=== PATIENT | female | born 1955 | race Caucasian/White ===

== ENCOUNTER 2017-09-29 10:00 | Inpatient (IN) | payer OTHER, MEDICARE ==
[~2017-09-29] VITALS: Ht 167.6 cm; Wt 110.7 kg
[2017-11-02] MEDS ORDERED: ATEN50TA PO (10:22)
[2017-11-02] MEDS ORDERED: HYDR-3580 PO (10:22)
[2017-11-02] MEDS ORDERED: CYCL10TA PO (10:22)
[2017-11-02] MEDS ORDERED: LISI-515 PO (10:22)
[2017-11-02] MEDS ORDERED: MULT-65 PO (10:22)
[2017-11-02] MEDS ORDERED: GABA300C5 PO (10:22)
[2017-11-02] MEDS ORDERED: OMEGCAP PO (10:22)
[2017-11-02] MEDS ORDERED: DULA0.5I SQ (10:22)
[2017-11-02] MEDS ORDERED: ROSU1TAB10 PO (10:22)
[2017-11-03] MEDS ORDERED: SODIUM CHLORID 0.9% 500 ML IV PRN (06:00)
[2017-11-03] MEDS ORDERED: CHLORHEXIDINE GLUCONATE 4% SOLN 120 ML BTL TOPICAL SCH (06:00)
[2017-11-03] MEDS ORDERED: METOPROLOL TARTRATE 25 MG TAB PO PRN (06:00)
[2017-11-03] MEDS ORDERED: ceFAZolin 2 GM PREMIX 50 ML IV SCH (06:00)
[2017-11-03] MEDS ORDERED: VANCOMYCIN 1000 MG/NS 250 ML (for <70 kg) IV SCH ×2 (06:00)
[2017-11-03] MEDS ORDERED: CHLORHEXIDINE GLUCONATE 2 % 1 PACK (2 CLOTHS) TOPICAL PRN (06:00)
[2017-11-03] MEDS ORDERED: LACTATED RINGER'S 1000 ML IV PRN (06:00)
[2017-11-03] MEDS ORDERED: POVIDONE IODINE 5% (ANTISEPSIS KIT) 4 APPLICATIONS EACH NARE PRN (06:00)
[2017-11-03] MEDS ORDERED: ACETAMINOPHEN 1000 MG/100 ML 100 ML IV ONE (06:27)
[2017-11-03] MEDS ORDERED: SUFentanil INJ 250 MCG/5 ML AMP ONE (06:27)
[2017-11-03] MEDS ORDERED: KETAMINE HCL 50 MG/5 ML SYRINGE ONE (06:30)
[2017-11-03] MEDS ORDERED: BUPIVACAINE/EPINEPHRINE 0.5% PF 10 ML VIAL ONE (06:49)
[2017-11-03] MEDS ORDERED: GENTAMICIN SULFATE 80 MG/2 ML VIAL ONE (06:49)
[2017-11-03] MEDS ORDERED: APREPITANT 40 MG CAP ONE (06:56)
[2017-11-03] MEDS ORDERED: SCOPOLAMINE 1.5 MG PATCH ONE (06:56)
[2017-11-03] MEDS ORDERED: DEXMEDETOMIDINE HCL 200 MCG/2 ML VIAL ONE (07:44)
[2017-11-03] MEDS ORDERED: MIDAZOLAM HCL 2 MG/2 ML VIAL ONE (07:59)
[2017-11-03] MEDS ORDERED: PROPOFOL 500 MG/50 ML INJ 100 ML ONE (08:39)
--- NOTE | 2017-11-03 09:44 | PD.OP ---
cc: Jim Membreno MD; Shayan Membreno MD Operative Report Date of Surgery: November 03, 2017 Preoperative Diagnosis: Osteophyte disc complex C3-4. Status post ACDF C4-C7, remote. Cervical spinal stenosis. Cervical radiculopathy Postoperative Diagnosis: Same Procedure: Anterior cervical discectomy decompression and bilateral foraminotomies, C3-4. Right anterior iliac crest bone graft Anesthesia: General Surgeon: Shayan Membreno Brick Dropper(s): KELLEY Hdz Operation and Findings: EBL: 50 cc INDICATIONS: This patient is a 62-year-old female status post previous cervical fusion C4-C7 many years ago he did well. Over the last year and half the patient had progressive radiating symptoms into both arms with evidence of cervical stenosis and cervical radiculopathy. Despite extensive conservative care, the patient is painful and symptomatic. She presents for surgical treatment NOTE: Libertad Hdz PA-C was present for the entire surgical procedure as my school psychologist assistant. In my medical opinion her skill and care was necessary for proper management of this patient PROCEDURE: The patient was brought to the operating room and anesthetized in the supine position. This patient was positioned supine on the radiolucent table. All pressure points were protected in the anterior cervical spine and iliac crest was scrubbed with alcohol followed by Hibiclens followed by ChloraPrep. A timeout was done and antibiotics were given within 1 hour time window. Lateral radiographic images were used identifying the proper level. A right anterior incision was made in line with skin creases. The platysma was opened in line with the incision. Deep dissection continued in the interval between the carotid sheath and the esophagus. The longus-coli muscles were lifted on both sides and retractors were positioned allowing good exposure. Lateral radiographic images were used to identify the proper level. Marblemount style interosseous pins were placed at C3 and C4 allowing exposure to that level. The microscope was rolled into the field. A total discectomy was accomplished and posterior osteophytes were removed. The posterior longitudinal ligament and annulus was taken down. Bilateral foraminotomies were accomplished. The endplates were squared up anticipating later bone grafting. A blunt probe could be placed out each foramen without evidence of nerve root compromise. The left iliac crest was approached. A small stab incision was made allowing percutaneous access to the anterior iliac crest. Multiple cores of cancellous bone were harvested and taken to the back table to be used for later bone grafting. The wound was irrigated anesthetized and closed with 4-0 Vicryl followed by Dermabond. The case was turned over to Dr. Jim Membreno for fusion and instrumentation per his dictation. FINDINGS: There was significant inflammatory changes at the C3-C4 level with evidence of high-grade bony stenosis at that level and mild instability. The decompression was felt to be very satisfactory. There was no complication that was appreciated. NOTE: This surgery was performed in 2 parts. The first part was the neurosurgical decompression performed under the variable power stereo microscope by the undersigned in addition to the bone graft. The second portion of the surgery will be performed by the orthopedic spine component by co -surgeon, Dr. Jim Membreno for the anterior fusion with interbody cage and anterior plate. The skill of 2 surgeons was necessary to perform distinct separate procedural services as dictated above and dictated in the following operative note by Dr. Jim Membreno. Shayan Membreno MD November 03, 2017 09:44
[2017-11-03] MEDS ORDERED: ACETAMINOPHEN/HYDROcodone 325 MG/7.5 MG TAB PO PRN (09:45)
[2017-11-03] MEDS ORDERED: Post-op Orders (for Pharmacy) XX ONE (09:45)
[2017-11-03] MEDS ORDERED: BISACODYL 10 MG SUPP RECTAL PRN (09:45)
[2017-11-03] MEDS ORDERED: ONDANSETRON HCL 4 MG/2 ML VIAL IV PUSH PRN (09:45)
[2017-11-03] MEDS ORDERED: MORPHINE SULFATE 4 MG/ML INJ IV PUSH PRN (09:45)
[2017-11-03] MEDS ORDERED: HYDR-3580 PO (09:46)
[2017-11-03] MEDS ORDERED: DO NOT ADM ANY ANTICOAGULANT DRUGS PRN (10:51)
[2017-11-03] MEDS ORDERED: *RESP: ALBUTEROL 2.5 MG/3 ML NEB (PRN) PERIprocedural Use ONLY NEB ONE (11:00)
[2017-11-03] MEDS: LACTATED RINGER'S 1000 ML INJ 1,000 ML IV SCH ×2 (11:00→22:10)
[2017-11-03] MEDS ORDERED: *morphine SULFATE 4 MG/ML PERIprocedure ONLY ONE ×2 (11:24→11:45)
--- NOTE | 2017-11-03 11:26 | MP ---
cc: Jim Membreno MD, Jason R MD DATE OF OPERATION: 11/03/2017 PREOPERATIVE DIAGNOSES: 1. C3-4 spinal stenosis, spinal cord compression and bilateral foraminal stenosis. 2. Status post C4-C7 anterior cervical fusion; status post C6-C7 anterior spinal instrumentation. 3. Cervical spine degenerative disk disease, osteoarthritis. 4. Bilateral cervical radiculitis with upper extremity weakness. POSTOPERATIVE DIAGNOSES: 1. C3-4 spinal stenosis, spinal cord compression and bilateral foraminal stenosis. 2. Status post C4-C7 anterior cervical fusion; status post C6-C7 anterior spinal instrumentation. 3. Cervical spine degenerative disk disease, osteoarthritis. 4. Bilateral cervical radiculitis with upper extremity weakness. PROCEDURE PERFORMED: Dr. Shayan Membreno and myself were co-surgeons. Dr. Shayan Membreno performed the neural decompression portion of the procedure, doing a C3-C4 anterior cervical diskectomy, anterior decompression using operative microscope and right anterior crest bone grafting. I performed the orthopedic portion of the procedure including the fusion and the spinal sedation, which was according to my operative note. My portion of the procedure was a C3-4 anterior interbody fusion; C3-4 Spinet ACC anterior cervical cage; C3-4 Spinet Rauscher anterior spinal instrumentation. SURGEON: Sydney Membreno MD GROUND HELPER [employer]RE[employer] RAILWAY: Kathy Mccall PA-C ESTIMATED BLOOD LOSS: 20 mL. DRAINS: None. COMPLICATION: None. PLAN OF ACTIVITIES: Per the orders. OPERATIVE PROCEDURE: My medical records assistant, Kathy Mccall PA-C, was present for the entire surgical case. She was medically necessary for the entire case because of the complexity of the case and to facilitate the performance of the procedure. The COLOR PRINT INSPECTOR at the back table was not of the skill set for this case to manipulate the instruments, e.g. the multiple different soft tissue retractors, trial implants and permanent implants including cage, plates and screws with bone grafting. The endplate at C3 was prepared for fusion. Hyaline cartilage endplate was removed using angled curettes and burs. A 7, 10 x 12 ACT cage was placed in the interspace. Anterior iliac crest bone grafting was used for interbody fusion under fluoroscopic guidance. The patient had long, large osteophytes at C3-C4 with the previous fusion from C4 to C7. Osteophytes were removed using multiple different types of rongeurs and linn. A 25 mm plate was used for anterior spinal instrumentation. Two tack pins were used to hold the plate in place. This was confirmed to be satisfactory positioning under fluoroscopic guidance in both AP and lateral plane. Each of the screws were 14 mm in length, 4.0 mm in diameter, fixed angle screws. These screws were drilled, screws were inserted and each screw head was appropriately locked to the plate. The wound was irrigated with copious amounts of sterile saline antibiotic solution. The wound itself was dry wound. The wound was closed in multiple layers using 3-0 Vicryl suture. The skin was approximated with running subcuticular 4-0 Vicryl. Dermabond was placed over the incision and sterile dressings were applied. [place] cervical orthosis was applied. The patient tolerated the procedure well and arrived in the recovery room in stable and satisfactory condition. MD ALIRIO Sin/TUNG , 10:47 AM , 11:25 AM
--- NOTE | 2017-11-03 15:03 | RADRPT ---
EXAM DATE: 11/03/2017 1:28 PM EDT AGE/SEX: 62 years / Female INDICATIONS: Fusion C3,C4 with screw and plate placement. CLINICAL DATA: This is the patient's initial encounter. Patient reports that signs and symptoms have been present for 1 day and indicates a pain score of Nonresponsive. MEDICAL/SURGICAL HISTORY: None. None. COMPARISON: No prior [place] exams available for comparison. FINDINGS: Single intraoperative crosstable view of the cervical spine demonstrates intradiscal with anterior pl ate and screw fixation at C3-4. Hardware appears well-positioned. Sagittal alignment maintained. CONCLUSION: 1. C3-4 anterior fixation, as above. Electronically signed by: Bang Seo MD 11/03/2017 3:01 PM EDT
[2017-11-03 15:28] VITALS: BP 127/65; PULSE 84; RESP 19; TEMP 97.7; O2SAT 99
[2017-11-03 20:00] VITALS: BP 130/62; PULSE 92; RESP 17; TEMP 98; O2SAT 97
[2017-11-03] MEDS ORDERED: LISINOPRIL 20 MG TAB PO SCH (21:00)
[2017-11-03] MEDS ORDERED: CYCLOBENZAPRINE HCL 10 MG TAB PO SCH (21:00)
[2017-11-03] MEDS ORDERED: ATENOLOL 50 MG TAB PO SCH (21:00)
[2017-11-03] MEDS: GABAPENTIN 300 MG CAP PO SCH (21:29)
[2017-11-03] MEDS: ACETAMINOPHEN/HYDROcodone 325 MG/7.5 MG TAB PO PRN (21:35)
[2017-11-04] VITALS: BP 107/55; PULSE 76; RESP 18; TEMP 97.5; O2SAT 95
[2017-11-04 04:00] VITALS: BP 151/59; PULSE 84; RESP 17; TEMP 98; O2SAT 97
[2017-11-04] MEDS: ACETAMINOPHEN/HYDROcodone 325 MG/7.5 MG TAB PO PRN ×2 (04:14→13:39)
--- NOTE | 2017-11-04 07:30 | EKG ---
Date Performed: 11/03/2017 Time Performed: 06:12:24 PTAGE: 62 years EKG: Sinus rhythm Normal ECG PREVIOUS TRACING : 07/06/2000 03.47 DOCTOR: Guillermina Jay Interpretating Date/Time 11/04/2017 07:26:23
--- NOTE | 2017-11-04 07:41 | PD.ORT.PN ---
Subjective Subjective Remarks She is doing a little better. She still has some left shoulder pain. Her throat is quite sore. No new complaints of pain. Questions about surgery and discharge. No new CP or SOB. She does have a slight cough. Objective Vitals Vital Signs Date Time Temp Pulse Resp B/P (MAP) Pulse Ox O2 Delivery O2 Flow Rate FiO2 11/04/17 04:58 21 11/04/17 04:00 98.0 84 17 151/59 (89) 97 11/04/17 00:00 97.5 76 18 107/55 (72) 95 11/03/17 20:00 98.0 92 17 130/62 (84) 97 11/03/17 15:28 97.7 84 19 127/65 (85) 99 11/03/17 13:54 98.2 80 20 119/57 (77) 100 Nasal Cannula 2 11/03/17 13:00 69 15 102/58 (73) 99 Nasal Cannula 2 11/03/17 12:00 70 20 101/57 (72) 98 Nasal Cannula 2 11/03/17 11:45 86 17 122/61 (81) 96 Nasal Cannula 2 11/03/17 11:30 76 22 116/60 (78) 98 Nasal Cannula 2 11/03/17 11:15 80 13 126/67 (86) 100 Nasal Cannula 2 11/03/17 11:00 79 16 128/65 (86) 98 Nasal Cannula 3 11/03/17 10:47 97.6 85 14 138/69 (92) 96 Nasal Cannula 3 I/O 11/03/17 11/03/17 11/03/17 11/04/17 11/04/17 11/04/17 07:00 15:00 23:00 07:00 15:00 23:00 Intake Total 2246 ml 1300 ml Output Total 50 ml Balance 2196 ml 1300 ml Intake Oral 30 ml 1200 ml IV Total 216 ml 100 ml Other 2000 ml Output Estimated Blood Loss 50 ml # Voids 0 3 Objective Remarks Sitting up in bed NAD Wearing her collar C/S Dressing c/d/i, minimal drainage, no swelling, no erythema +motor deltoid, biceps, +sens, +nvi 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 Throat sore this morning. Ok to d/c home today. PO pain meds as needed. 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 Ok for dressing changes beginning tomorrow. Limited lifting overhead. Soft diet for 72 hours. F/U in 2 weeks as scheduled. Staged posterior fusion in 2-3 weeks. Kate Turner November 04, 2017 07:41
--- NOTE | 2017-11-04 07:41 | HHI.DCPOC ---
Discharge Care Plan Diagnosis: (1) Cervical radicular pain (2) Cervical spinal stenosis Your Health Problems Are: Difficulty with ADL Swelling Additional Problems Sore throat Goals to Promote Your Health * To prevent worsening of your condition and complications * To maintain your health at the optimal level Directions to Meet Your Goals Take your medications as prescribed Follow your dietary instruction Follow activity as directed Keep your appointments as scheduled Take your immunizations and boosters as scheduled If your symptoms worsen call your PCP, if no PCP go to Urgent Care Center or Emergency Room Smoking is Dangerous to Your Health. Avoid second hand smoke Call the 24-hour hour crisis hotline for domestic abuse at Kate Turner November 04, 2017 07:41
--- NOTE | 2017-11-04 07:43 | HHI.DS ---
Discharge Summary Admission Date November 03, 2017 at 05:32 Discharge Date: November 04, 2017 Admitting Diagnosis see below Diagnosis: (1) Cervical spinal stenosis Diagnosis: Principal ICD Codes: M48.02 - Spinal stenosis, cervical region (2) Cervical radicular pain Diagnosis: Principal ICD Codes: M54.12 - Radiculopathy, cervical region Procedures ACDF C34, bone graft. Brief History This is a 62 year old female patient..multiple previous cervical fusions. Increased left shoulder and arm pain. PE at Discharge Sitting up in bed NAD Wearing her collar C/S Dressing c/d/i, minimal drainage, no swelling, no erythema +motor deltoid, biceps, +sens, +nvi communications program manager intact bilat Pt Condition on Discharge: Stable Discharge Disposition: Discharge Home Discharge Instructions Diet Instructions: Diabetic Diet Additional Diet Instructions: Soft diet for 72 hours Activities You Can Perform: Weight Bearing as Nydia, See Additionl Instruction Activities to Avoid: Strenuous Activity Additional Activity Instruc.: Brace full-time to cervical spine New Medications: Hydrocodone/Acetaminophen (Hydrocodone-Acetamin 7.5-325) 7.5 Mg-325 Mg Tablet 1 TAB PO Q4H PRN for Pain, #42 TAB Continued Medications: Atenolol (Atenolol) 50 Mg Tab 50 MG PO HS for Blood Pressure Management, #30 TAB 0 Refills Cyclobenzaprine (Flexeril) 10 Mg Tab 10 MG PO HS for Muscle Spasm, #90 TAB 0 Refills Dulaglutide Inj (Trulicity Inj) 1.5 Mg/0.5 Ml Pen 1.5 MG SQ Q7D for Blood Sugar Management, #4 PEN 0 Refills Fish Oil-Cholecalciferol (Roberts-3 Fish Oil/Vitamin) 1,000-1,000 Mg Cap 1200 CAP PO DAILY for Nutritional Supplement, CAP 0 Refills Gabapentin (Gabapentin) 300 Mg Cap 300 MG PO BID, #60 CAP 0 Refills Hydrocodone-Acetaminophen (Hydrocodone-Acetaminophen) 7.5 Mg-325 Mg Tab 2 TAB PO DAILY PRN for PAIN, TAB 0 Refills Lisinopril (Lisinopril) 20 Mg Tab 20 MG PO HS, #30 TAB 0 Refills Multiple Vitamin (Multi-Vitamin Daily) 1 Tab Tab 1 TAB PO DAILY for Nutritional Supplement, TAB 0 Refills Rosuvastatin (Rosuvastatin) 40 Mg Tab 40 MG PO DAILY for Cholesterol Management, #30 TAB 0 Refills Kate Turner November 04, 2017 07:43
[2017-11-04 08:00] VITALS: BP 129/60; PULSE 78; RESP 17; TEMP 96.9; O2SAT 97
[2017-11-04] MEDS: GABAPENTIN 300 MG CAP PO SCH (08:23)
[2017-11-04] MEDS: LACTATED RINGER'S 1000 ML INJ 1,000 ML IV SCH (08:30)
[2017-11-04] MEDS ORDERED: DOCUSATE SODIUM 100 MG CAP PO SCH (09:00)
[2017-11-04] MEDS ORDERED: MULTIVITAMINS/MINERALS THERAPEUTIC TAB PO SCH (09:00)
[2017-11-04] MEDS ORDERED: ATORVASTATIN 80 MG TAB PO SCH (09:00)
[2017-11-04 12:00] VITALS: BP 116/57; PULSE 88; RESP 17; TEMP 98; O2SAT 98
== END 2017-11-04 14:15 | disposition home or self-care (01) | DRG 472 ==
LOC: HSDI 11-03 05:32 → N06A 11-03 14:11
PROVIDERS: ADMIT Orthopaedic Surgery Orthopaedic Surgery of the Spine; ATTEND Orthopaedic Surgery Orthopaedic Surgery of the Spine
PROC: 00NW0ZZ Release Cervical Spinal Cord, Open Approach (ICD-10-PCS; 2017-11-03)
PROC: 0QB20ZZ Excision of Right Pelvic Bone, Open Approach (ICD-10-PCS; 2017-11-03)
PROC: 0RT30ZZ Resection of Cervical Vertebral Disc, Open Approach (ICD-10-PCS; 2017-11-03)
PROC: 0RG10A0 Fusion of Cervical Vertebral Joint with Interbody Fusion Device, Anterior Approach, Anterior Column, Open Approach (ICD-10-PCS; principal; 2017-11-03 07:21)
DX: M48.02 Spinal stenosis, cervical region (principal); G95.20 Unspecified cord compression; I10 Essential (primary) hypertension; M25.78 Osteophyte, vertebrae; E78.5 Hyperlipidemia, unspecified; E11.9 Type 2 diabetes mellitus without complications; E04.2 Nontoxic multinodular goiter; E66.9 Obesity, unspecified; Z68.39 Body mass index [BMI] 39.0-39.9, adult; M50.10 Cervical disc disorder with radiculopathy, unspecified cervical region
CPT/HCPCS: 72040; 93005; 94150; 94664; C1713; J0131; J0690; J1580; J2250; J2270; J3010; J3370; J7120; J7613; J8501; L0150

== ENCOUNTER 2017-11-15 07:17 | Inpatient (IN) | payer OTHER, MEDICARE ==
[~2017-11-15] VITALS: Ht 167.6 cm; Wt 107.8 kg
[~2017-11-15 07:17] MED LIST: ATEN50TA PO; CYCL10TA PO; DULA0.5I SQ; GABA300C5 PO; HYDR-3580 PO; LISI-515 PO; MULT-65 PO; OMEGCAP PO; ROSU1TAB10 PO
[2017-11-15] MEDS ORDERED: VANCOMYCIN 1 GM/200 ML INJ 200 ML IV ONE (08:09)
[2017-11-15] MEDS ORDERED: SODIUM CHLORID 0.9% 500 ML IV PRN (08:15)
[2017-11-15] MEDS ORDERED: CHLORHEXIDINE GLUCONATE 4% SOLN 120 ML BTL TOPICAL SCH (08:15)
[2017-11-15] MEDS ORDERED: VANCOMYCIN 1000 MG/NS 250 ML (for <70 kg) IV SCH ×2 (08:15)
[2017-11-15] MEDS ORDERED: METOPROLOL TARTRATE 25 MG TAB PO PRN (08:15)
[2017-11-15] MEDS ORDERED: ceFAZolin 2 GM PREMIX 50 ML IV SCH (08:15)
[2017-11-15] MEDS ORDERED: LACTATED RINGER'S 1000 ML IV PRN (08:15)
[2017-11-15] MEDS ORDERED: POVIDONE IODINE 5% (ANTISEPSIS KIT) 4 APPLICATIONS EACH NARE PRN (08:15)
[2017-11-15] MEDS ORDERED: CHLORHEXIDINE GLUCONATE 2 % 1 PACK (2 CLOTHS) TOPICAL PRN (08:15)
[2017-11-15] MEDS ORDERED: GENTAMICIN SULFATE 80 MG/2 ML VIAL ONE (09:46)
[2017-11-15] MEDS ORDERED: BUPIVACAINE/EPINEPHRINE 0.5% PF 10 ML VIAL ONE (09:46)
[2017-11-15] MEDS ORDERED: SCOPOLAMINE 1.5 MG PATCH ONE (10:05)
[2017-11-15] MEDS ORDERED: NEOSTIGMINE 5 MG/5 ML SYRINGE IV PUSH ONE (12:00)
[2017-11-15] MEDS ORDERED: PROPOFOL 200 MG/20 ML AMP IV ONE (12:00)
[2017-11-15] MEDS ORDERED: PHENYLEPH/NS 1000 MCG/10 ML SYR IV ONE (12:00)
[2017-11-15] MEDS ORDERED: GLYCOPYRROLATE 1 MG/5 ML SYRINGE IV PUSH ONE (12:00)
[2017-11-15] MEDS ORDERED: ROCURONIUM INJ 50 MG/5 ML SYRINGE IV PUSH ONE (12:00)
[2017-11-15] MEDS ORDERED: ONDANSETRON HCL 4 MG/2 ML VIAL IV ONE (12:00)
[2017-11-15] MEDS ORDERED: DEXAMETHASONE SOD PHOS 4 MG/ML VIAL IV ONE (12:00)
[2017-11-15] MEDS ORDERED: ePHEDrine/NS 25 MG/5 ML SYRINGE IV ONE (12:00)
[2017-11-15] MEDS ORDERED: LACTATED RINGER'S 1000 ML INJ 2,000 ML IV ONE (12:00)
[2017-11-15] MEDS ORDERED: LIDOCAINE HCL 1% PF 5 ML SYRINGE OTHER ONE (12:00)
[2017-11-15] MEDS ORDERED: LACTATED RINGER'S 1000 ML INJ 1,000 ML IV SCH (12:11)
[2017-11-15] MEDS ORDERED: BISACODYL 10 MG SUPP RECTAL PRN (12:15)
[2017-11-15] MEDS ORDERED: MORPHINE SULFATE 4 MG/ML INJ IV PUSH PRN (12:15)
[2017-11-15] MEDS ORDERED: ONDANSETRON HCL 4 MG/2 ML VIAL IV PUSH PRN (12:15)
[2017-11-15] MEDS ORDERED: ACETAMINOPHEN/HYDROcodone 325 MG/7.5 MG TAB PO PRN (12:15)
[2017-11-15] MEDS ORDERED: Post-op Orders (for Pharmacy) XX ONE (12:15)
--- NOTE | 2017-11-15 12:19 | PD.OP ---
cc: Shayan Membreno MD Operative Report Date of Surgery: Nov 15, 2017 Preoperative Diagnosis: Status post anterior cervical fusion C4-C7, remote. Status post anterior cervical decompression and fusion C3-4, recent. At risk for failed fusion, C3-4 Postoperative Diagnosis: Same Procedure: Posterior cervical fusion, C3-4. Left posterior iliac crest bone graft. Segmental posterior spinal instrumentation, 1 level, C3-4 Placement of bilateral intra-facet cages, C3-4 Anesthesia: General Surgeon: Shayan Membreno Program Aide Group Work(s): Kate Turner PA-C and Libertad Hdz PA-C Operation and Findings: EBL: 50 cc INDICATIONS: This patient is a 62-year-old female who had a previous anterior fusion from C3-C7 over period of several years many years ago. She has broken down the C3-4 level and recently underwent anterior decompression and fusion at that level. This patient is at risk for a failed fusion of the level because of osteopenia, overall poor bone purchase and a previous anterior fusion below that C4-C7. She presents for staged posterior cervical fusion NOTE: Kate Turner and Libertad Hdz PA-C were present for the entire surgical procedure as my first calender worker. In my medical opinion there skill and care was necessary for proper management of this patient. Kate Turner was there for positioning of the patient and the iliac crest bone graft. Libertad Hdz was there for the rest of the procedure including the exposure instrumentation and fusion. She was there for the remainder of the case before the patient was awakened and taken to recovery room PROCEDURE: The patient was brought the operating room and anesthetized in the supine position. The patient was positioned prone on a Alex table. The arms were placed out along the side and taping was utilized to ensure adequate visualization. AP and lateral radiographic images were used identifying the proper level and allowing excellent exposure for purpose of the cervical fusion. A timeout was done and antibiotics were given within a routine time window. A small incision was made over the left iliac crest bone graft. A series of cores of bone graft were harvested with a special percutaneous device. The bone graft was taken to the back table to be mixed with stem cell bone graft for the later part of the case Using AP and lateral radiographs, skin markings were made. On the right side and 18-gauge spinal needle was placed down to the proper level. The left side a separate incision was made and we used the StrataCloudRAX system. Exposure was afforded down to the proper level. Under visualization, a chisel was placed down to the C 3 4 level. This was confirmed under radiographs to be in proper position. Exposure was satisfactory. This is placed down into the facet joint at that level. A decorticating device was utilized decorticating the bone of the facet above and below. A retractor was placed down over the access chisel allowing exposure to the joint and exposure to the articular cartilage. A drilling system was utilized removing cartilage and bone this region followed by a rasp. On the back table demineralized bone matrix was mixed with Nucel stem cells and a autogenous bone graft. A combination of both these were then paced placed into proper cages. The cages were impacted into the proper position and checked again under AP and lateral fluoroscopic images. A transfixation screw was placed into the cage having excellent fixation into the facet joint of the level above. The back side of the cage was filled with additional bone graft which was tamped into position. The retractor was removed. On the right side a separate incision was made. Using the likewise sequence of access to the same level, an incision was made allowing visualization for placement of an access chisel which was placed into the joint followed by decortication with excellent visualization. A final retractor was positioned holding this while we were able to drill and use the rasp. The joint was prepared and we created a space for the cage. The cage was filled with bone graft and impacted in proper position. A transfixation screw was fixated at that time and alignment was satisfactory. Additional bone graft placed along the posterior aspect of the cage and the facet joint and was tamped into position.. Intraoperative x-rays in AP and lateral plane showed excellent positioning and stabilization . The wound was irrigated copiously. Hemostasis was controlled. The fascia was closed with interrupted Vicryl suture skin and subcutaneous tissue with 3-0 Vicryl suture followed by Dermabond. The sponge count needle counts and sponge counts were all correct. The patient tolerated the procedure well as taken to the recovery room in satisfactory condition. FINDINGS: This level was mildly unstable. The final positioning of components was felt to be excellent. There was no complication that was appreciated. Shayan Membreno MD Nov 15, 2017 12:19
[2017-11-15] MEDS ORDERED: HYDR-3580 PO (12:27)
[2017-11-15] MEDS ORDERED: *morphine SULFATE 4 MG/ML PERIprocedure ONLY ONE ×2 (12:38→12:57)
[2017-11-15] MEDS ORDERED: MIDAZOLAM HCL 2 MG/2 ML VIAL ONE (12:44)
[2017-11-15] MEDS ORDERED: *HYDROmorphone PF 0.5 MG/0.5 ML PERIprocedure ONLY ONE (13:10)
--- NOTE | 2017-11-15 15:47 | RADRPT ---
EXAM DATE: 11/15/2017 2:27 PM EDT AGE/SEX: 62 years / Female INDICATIONS: C 3-4 cervical fusion. CLINICAL DATA: This is the patient's initial encounter. Patient reports that signs and symptoms have been present for 1 day and indicates a pain score of Nonresponsive. MEDICAL/SURGICAL HISTORY: Non-responsive. Non-responsive. COMPARISON: [facility] [place] 11/03/2017. . FINDINGS: Intraoperative films demonstrate anterior cervical fusion at C3-4 CONCLUSION: C3-4 has been fixated Electronically signed by: Jean Carlos Kimble MD 11/15/2017 3:46 PM EDT
[2017-11-15 16:10] VITALS: BP 139/72; PULSE 98; RESP 18; TEMP 97.9; O2SAT 95
[2017-11-15] MEDS ORDERED: ONDANSETRON ODT 4 MG TAB PO PRN (16:45)
[2017-11-15] MEDS: ACETAMINOPHEN/HYDROcodone 325 MG/7.5 MG TAB PO PRN ×2 (17:48→23:26)
[2017-11-15] MEDS ORDERED: DULAGLUTIDE 1.5 MG SQ SCH (18:00)
[2017-11-15 20:30] VITALS: BP 112/56; PULSE 100; RESP 17; TEMP 98.1; O2SAT 93
[2017-11-15] MEDS ORDERED: CYCLOBENZAPRINE HCL 10 MG TAB PO SCH (21:00)
[2017-11-15] MEDS ORDERED: LISINOPRIL 20 MG TAB PO SCH (21:00)
[2017-11-15] MEDS ORDERED: ATENOLOL 50 MG TAB PO SCH (21:00)
[2017-11-16 00:45] VITALS: BP 124/70; PULSE 85; RESP 16; TEMP 97.4; O2SAT 98
[2017-11-16 04:30] VITALS: BP 125/68; PULSE 84; RESP 16; TEMP 97.6; O2SAT 97
[2017-11-16] MEDS: ACETAMINOPHEN/HYDROcodone 325 MG/7.5 MG TAB PO PRN ×2 (05:59→11:59)
[2017-11-16 08:00] VITALS: BP 96/59; PULSE 80; RESP 18; TEMP 98.1; O2SAT 96
[2017-11-16] MEDS ORDERED: MULTIVITAMINS/MINERALS THERAPEUTIC TAB PO SCH (09:00)
[2017-11-16] MEDS ORDERED: DOCUSATE SODIUM 100 MG CAP PO SCH (09:00)
[2017-11-16] MEDS ORDERED: ATORVASTATIN 80 MG TAB PO SCH (09:00)
[2017-11-16] MEDS ORDERED: NON-FORMULARY DRUG (Rosuvastatin 40 MG) PO SCH (09:00)
[2017-11-16 12:00] VITALS: BP 105/54; PULSE 75; RESP 18; TEMP 98.2; O2SAT 97
--- NOTE | 2017-11-16 13:02 | PD.ORT.PN ---
Subjective Subjective Remarks She states she is doing ok. She has a lot of posterior neck pain. No new arm pain. She has some swelling in her hands. Questions about surgery. Objective Vitals Vital Signs Date Time Temp Pulse Resp B/P (MAP) Pulse Ox O2 Delivery O2 Flow Rate FiO2 11/16/17 12:00 98.2 75 18 105/54 (71) 97 11/16/17 08:00 98.1 80 18 96/59 (71) 96 11/16/17 07:00 18 11/16/17 04:30 97.6 84 16 125/68 (87) 97 11/16/17 00:45 97.4 85 16 124/70 (88) 98 11/15/17 20:30 98.1 100 17 112/56 (74) 93 11/15/17 16:10 97.9 98 18 139/72 (94) 95 11/15/17 15:25 98.7 89 18 126/59 (81) 95 Room Air 11/15/17 14:45 81 18 105/74 (84) 95 Room Air 11/15/17 13:45 81 17 101/55 (70) 95 Room Air 11/15/17 13:30 82 17 98/54 (69) 95 Room Air 11/15/17 13:15 85 17 96/46 (63) 95 Room Air I/O 11/15/17 11/15/17 11/15/17 11/16/17 11/16/17 11/16/17 07:00 15:00 23:00 07:00 15:00 23:00 Intake Total 1150 ml 419 ml 480 ml Output Total 25 ml Balance 1125 ml 419 ml 480 ml Intake Oral 50 ml 480 ml IV Total 419 ml Other 1100 ml Output Estimated Blood Loss 25 ml # Voids 4 # Bowel Movements 0 Objective Remarks Sitting up in chair Eating breakfast Anxious, no distress VSS Posterior C/S Dressing intact, no drainage, mild spasm, no erythema +motor biceps/deltoids, +sens, +nvi Assessment & Plan Ortho Post Op Day #: 1 Problem List: Assessment and Plan pod#1 s/p PSF C34, bone graft Ortho stable. Pain controlled. PO pain meds as needed. Dressing clean. Ok to shower beginning pod#2. 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 Ok to remove for hygiene only. Ice to posterior neck bid. Ok to d/c home today. F/U in weeks as scheduled. Kate Turner Nov 16, 2017 13:02
--- NOTE | 2017-11-16 13:16 | HHI.DCPOC ---
Discharge Care Plan Diagnosis: (1) Cervical spinal stenosis (2) Cervical radicular pain Your Health Problems Are: Incision/Drains Skin Breakdown Swelling Goals to Promote Your Health * To prevent worsening of your condition and complications * To maintain your health at the optimal level Directions to Meet Your Goals Take your medications as prescribed Follow your dietary instruction Follow activity as directed Keep your appointments as scheduled Take your immunizations and boosters as scheduled If your symptoms worsen call your PCP, if no PCP go to Urgent Care Center or Emergency Room Smoking is Dangerous to Your Health. Avoid second hand smoke Call the 24-hour hour crisis hotline for domestic abuse at Kate Turner Nov 16, 2017 13:16
--- NOTE | 2017-11-16 13:17 | HHI.DS ---
Discharge Summary Admission Date Nov 15, 2017 at 07:17 Discharge Date: Nov 16, 2017 Admitting Diagnosis see below Diagnosis: (1) Cervical spinal stenosis Diagnosis: Principal ICD Codes: M48.02 - Spinal stenosis, cervical region (2) Cervical radicular pain Diagnosis: Principal ICD Codes: M54.12 - Radiculopathy, cervical region Procedures Posterior cervical fusion C34, DTRAX, bone graft. Brief History This is a 62 year old female patient Discharge Disposition: Discharge Home Discharge Instructions Diet Instructions: Diabetic Diet Activities You Can Perform: See Additionl Instruction Additional Activity Instruc.: Brace wear full-time Kate Turner Nov 16, 2017 13:16
[2017-11-16 16:00] VITALS: BP 154/76; PULSE 81; RESP 18; TEMP 98.2; O2SAT 96
[2017-11-16] MEDS ORDERED: NON-FORMULARY DRUG (Dulaglutide Inj (Trulicity Inj) 1.5 MG) SQ SCH (18:00)
== END 2017-11-16 15:44 | disposition home or self-care (01) | DRG 473 ==
LOC: HSDI 07:17 → N06B 15:51
PROVIDERS: ADMIT Orthopaedic Surgery Orthopaedic Surgery of the Spine; ATTEND Orthopaedic Surgery Orthopaedic Surgery of the Spine
PROC: 0QB33ZZ Excision of Left Pelvic Bone, Percutaneous Approach (ICD-10-PCS; 2017-11-15)
PROC: 0RG1071 Fusion of Cervical Vertebral Joint with Autologous Tissue Substitute, Posterior Approach, Posterior Column, Open Approach (ICD-10-PCS; principal; 2017-11-15 10:38)
DX: M48.02 Spinal stenosis, cervical region (principal); I10 Essential (primary) hypertension; M85.80 Other specified disorders of bone density and structure, unspecified site; M54.12 Radiculopathy, cervical region; E78.5 Hyperlipidemia, unspecified; I73.9 Peripheral vascular disease, unspecified; G47.30 Sleep apnea, unspecified; E11.9 Type 2 diabetes mellitus without complications; K21.9 Gastro-esophageal reflux disease without esophagitis; E66.9 Obesity, unspecified; F32.9 Major depressive disorder, single episode, unspecified; M19.90 Unspecified osteoarthritis, unspecified site; Z98.1 Arthrodesis status; Z68.38 Body mass index [BMI] 38.0-38.9, adult
CPT/HCPCS: 72040; 76000; 94150; C1713; J0690; J1100; J1170; J1580; J2250; J2270; J2370; J2405; J2710; J3010; J3370; J7120